=== PATIENT | male | born 1975 | race Caucasian/White ===

== ENCOUNTER 2018-11-25 09:38 | Inpatient (IN) | payer OTHER ==
[~2018-11-25] VITALS: Ht 175.3 cm; Wt 89.8 kg
[~2018-11-25 09:38] MED LIST: AMOX1TAB5 PO; PERCOCET 5/321 UDTAB PO
[2018-11-25] MEDS ORDERED: LEXAPRO20 MG (09:44)
[2018-11-25] MEDS ORDERED: SEROQUEL200 MG (09:44)
--- NOTE | 2018-11-25 09:47 | NUR ---
SE RECIBE PTE ALERTA Y ORIENTADO X3 EL CUAL REFIERE VENIR POR DOLOR DE [place]OM[place] Y ACIDEZ. PTE REFIERE NO PRESENTAR VOMITOS NI NAUSEAS AL MOMENTO. SE COLOCA A PTE EN AREA DE PASILLO.
--- NOTE | 2018-11-25 10:35 | NUR ---
PACIENTE ALERTA Y ORIENADA X3, CON BUEN PATRON RESPIRATORIO Y SIGNOS VITALES ESTABLES, REFIERE DOLOR ABDOMINAL, SE ABRE VENA CON ANGIO #18 PATENTE Y JUD DE EDEMA, SE ADMINISTRA MEDICAMENTOS PINA ORDENADOS PEPCID 20MG IV Y ZOFRAN PO 4MG, SE ANTONINO MUESTRAS BAJO MEDIDAS ASEPTICAS CBC, AMILASA, LIPASA Y UA. SE RYAN TRANQUILO EN CAMA Y CON BARANDAS ELEVADAS.
[2018-11-28] MEDS ORDERED: OMEPRAZOLE20 MG PO (14:37)
[2018-11-28] MEDS ORDERED: PERCOCET 5-3251 EACH PO (14:37)
== END 2018-11-28 16:45 | disposition home or self-care (01) | DRG 419 ==
LOC: ER 09:38 → O/R 21:14 → SEC-K 21:14 → O/R 11-26 15:05 → SURG 11-26 19:39
PROVIDERS: ADMIT Surgery
PROC: BW40ZZZ Ultrasonography of Abdomen (ICD-10-PCS; 2018-11-26)
PROC: 0FT44ZZ Resection of Gallbladder, Percutaneous Endoscopic Approach (ICD-10-PCS; principal; 2018-11-26 15:00)
DX: K80.00 Calculus of gallbladder with acute cholecystitis without obstruction (principal); K76.0 Fatty (change of) liver, not elsewhere classified; F41.8 Other specified anxiety disorders; F32.89 Other specified depressive episodes; F17.210 Nicotine dependence, cigarettes, uncomplicated

== ENCOUNTER 2019-06-09 18:05 | Emergency (ER) | payer OTHER ==
[~2019-06-09] VITALS: Ht 177.8 cm; Wt 88.5 kg
[~2019-06-09 18:05] MED LIST changes: +LEXAPRO20 MG; +OMEPRAZOLE20 MG PO; +PERCOCET 5-3251 EACH PO; +SEROQUEL200 MG
[2019-06-09] MEDS ORDERED: KETO10TA2 PO (23:29)
[2019-06-09] MEDS ORDERED: TAMS0.4C PO (23:29)
[2019-06-09] MEDS ORDERED: ONDANSETRON ODT4 MG SL (23:29)
== END 2019-06-09 23:43 | disposition home or self-care (01) ==
LOC: ER 18:05
DX: N20.1 Calculus of ureter (principal); R10.32 Left lower quadrant pain

== ENCOUNTER → 2019-06-14 | Outpatient (CLI) | payer OTHER ==
[~2019-06-14] MED LIST changes: +KETO10TA2 PO; +ONDANSETRON ODT4 MG SL; +TAMS0.4C PO
== END | disposition home or self-care (01) ==
LOC: RAD 12:49
DX: N20.1 Calculus of ureter (principal)

== ENCOUNTER 2019-07-08 13:03 | Outpatient (CLI) | payer OTHER | END 2019-07-08 13:14 | disposition home or self-care (01) | LOC: RAD 13:03 | DX: N20.1 Calculus of ureter (principal) ==

== ENCOUNTER 2019-08-14 01:56 | Emergency (ER) | payer OTHER ==
[~2019-08-14] VITALS: Ht 162.6 cm; Wt 77.1 kg
== END 2019-08-14 03:35 | disposition home or self-care (01) ==
LOC: ER 01:56
DX: M24.411 Recurrent dislocation, right shoulder (principal)